=== PATIENT | female | born 1990 | race Two or more races ===

== ENCOUNTER → 2024-11-22 | Day surgery (SDC) | payer OTHER, SELFPAY ==
[2024-11-21 08:12] VITALS: BMI 23.2
--- NOTE | 2024-11-21 08:36 | ESHP_ITS ---
RE: CELIA DAVISON : 1990 DATE OF ADMISSION: 11/22/2024 HISTORY OF PRESENT ILLNESS: This is a 34-year-old 0 para 0 with LMP of 11/02/2024, who presents for removal of a submucous myoma. The patient has been experiencing abnormal uterine bleeding, which is a significant quality of life issue for her. She desires future fertility. ALLERGIES: NO KNOWN DRUG ALLERGIES. MEDICATIONS: None. SOCIAL HISTORY: She denies any alcohol, drug use or smoking. PAST MEDICAL HISTORY: Anxiety and depression. FAMILY HISTORY: Depression, anxiety, diabetes, and hypertension. PAST SURGICAL HISTORY: Denies. REVIEW OF SYSTEMS: She denies any chest pain, palpitations, cough, fever, shortness of breath or lower extremity pain. PHYSICAL EXAMINATION: VITAL SIGNS: Blood pressure 131/75, heart rate 68, respirations 18, temperature is 98.2, and weight 123 pounds. HEENT: Oropharynx and sclerae are clear. LUNGS: Clear to auscultation bilaterally. HEART: Regular rate and rhythm. ABDOMEN: Nontender. No scars noted. EXTREMITIES: Nontender. SKIN: No gross rashes or lesions. NEUROLOGIC: No focal deficits. ASSESSMENT AND PLAN: Abnormal uterine bleeding and submucous leiomyomata of the uterus. Plan is hysteroscopy, fractional dilatation and curettage, and MyoSure removal of submucous myoma. Informed consent was obtained. The patient was made aware of the risks, complications, alternatives, and benefits of the proposed procedure and she agrees. She is aware of the risk of injury to bowel, bladder, adjacent organs, pulmonary embolism, deep vein thrombosis, pelvic infection, reoperation to repair injury to internal organs, anesthesia complications, the possibility that a laparotomy needs to be performed to repair organs or controlled bleeding, and the possibility that the procedure is not able to be completed due to severe adhesions or technical difficulties. She verbalized understanding and agrees to proceed with the procedure with an understanding of the risks and complications. DT: 16:03:11 TT: 18:56:00 Ref: [id number] - TID: [id number] MTDD
[2024-11-21 08:46] LABS: Basophils % (Auto) 1 % (0-2.5); Eosinophils # (Auto) 0.1 Thou/mm3 (0.0-0.5); Eosinophils % (Auto) 1 % (0-10); Hematocrit 40.9 % (36.0-46.0); Hemoglobin 14.2 g/dL (12.0-16.0); Immature Granulocytes % (Auto) 0 % (0-0); Immature Granulocytes Auto 0.03 Thou/mm3 (0.00-0.00); Lymphocytes % (Auto) 29 % (10-50); Mean Corpuscular HGB Conc 34.7 g/dl (31.0-37.0); Mean Corpuscular Hemoglobin 30.7 pg (25.0-35.0); Mean Corpuscular Volume 89 fL (80-100); Monocytes # (Auto) 0.4 Thou/mm3 (0.0-0.8); Monocytes % (Auto) 6 % (0-12); Neutrophils # (Auto) 4.4 Thou/mm3 (1.8-7.7); Neutrophils % (Auto) 63 % (37-80); Nucleated Red Blood Cell % 0 /100 WBC (0); Platelet Count 284 Thou/mm3 (140-440); RDW Standard Deviation 43.5 fL (36.4-46.3); Red Blood Count 4.62 Miln/mm3 (4.00-5.20)
[2024-11-21 09:07] LABS: Alanine Aminotransferase 19 U/L (10-49); Albumin, Serum 4.5 gm/dL (3.5-5.0); Albumin/Globulin Ratio 1.7 (1.2-2.2); Alkaline Phosphatase 70 U/L (46-116); Anion Gap 6 (7-16); Aspartate Amino Transferase 23 U/L (0-34); BUN/Creatinine Ratio 16 Ratio (12-20); Beta HCG,Quantitative 1 mIU/mL (<5.0); Bilirubin,Total 0.9 mg/dL (0.3-1.2); Blood Urea Nitrogen 13 mg/dL (9-23); Calcium 9.5 mg/dL (8.3-10.6); Calcium (Corrected) 9.5 mg/dL (8.5-10.1); Carbon Dioxide 29.1 mMol/L (20.0-31.0); Chloride 103 mMol/L (98-107); Creatinine (Component) 0.8 mg/dL (0.6-1.3); Estimated Creatinine Clearance 75.5 mL/min (>60); Globulin 2.6 gm/dL (2.3-3.5); Glucose 88 mg/dL (74-106); Osmolality,Calculated 274 (275-295); Potassium 4.5 mMol/L (3.4-5.1); Sodium 138 mMol/L (136-145); Total Protein 7.1 gm/dL (5.7-8.2); eGFR > 60 See Note
[2024-11-21 09:20] LABS: Partial Thromboplastin Time 27.7 Seconds (22.0-36.0); Prothrombin Time 10.9 Seconds (9.0-12.2)
[2024-11-22 08:30] VITALS: BP 113/68; PULSE 55; RESP 20; TEMP 36.6; O2SAT 98; BMI 22.8
--- NOTE | 2024-11-22 09:00 | SUR.PREOP ---
Surgery cancelled due to equipment failure. Made aware by Dr. Hill. Aware to call Dr. Hill's office to reschedule procedure.
== END | disposition home or self-care (01) ==
LOC: S2EX 07:53
PROVIDERS: Referring Provider Specialist; Visit Provider Specialist
PROC: 0U5B8ZZ Destruction of Endometrium, Via Natural or Artificial Opening Endoscopic (ICD-10-PCS; CPT 58563; principal; 2024-11-22 09:45)
DX: D25.0 Submucous leiomyoma of uterus (principal); Z53.9 Procedure and treatment not carried out, unspecified reason
CPT/HCPCS: 58558; 36415; 80053; 84702; 85025; 85610; 85730; 86850; 86900; 86901; A4217; A4649

== ENCOUNTER 2025-01-05 05:30 | Day surgery (SDC) | payer OTHER, SELFPAY ==
[2025-01-04 15:09] VITALS: BMI 22.5
--- NOTE | 2025-01-04 16:15 | ESHP_ITS ---
RE: CELIA DAVISON : 1990 DATE OF ADMISSION: 01/05/2025 HISTORY OF PRESENT ILLNESS: This is a 34-year-old 1, para 0 with miscarriage at 6 weeks gestation who presents for suction dilatation and curettage. The patient denies any bleeding or cramping. She has had serial transvaginal ultrasounds confirming a 6-week intrauterine without cardiac activity. ALLERGIES: NO KNOWN DRUG ALLERGIES. MEDICATIONS: multivitamin 1 p.o. daily. PAST MEDICAL HISTORY: Submucous myoma of uterus; anxiety, and depression. SOCIAL HISTORY: She denies any alcohol, drug use, or smoking. FAMILY HISTORY: Depression, anxiety, diabetes, and hypertension. PAST SURGICAL HISTORY: Denies. REVIEW OF SYSTEMS: She denies any chest pain, palpitations, cough, fever, shortness of breath, or lower extremity pain. PHYSICAL EXAMINATION: VITAL SIGNS: Blood pressure is 122/74, heart rate 72, respirations 18, temperature 98.6. HEENT: Oropharynx and sclerae are clear. LUNGS: Clear to auscultation bilaterally. HEART: Regular rate and rhythm. ABDOMEN: Nontender. No scars noted. EXTREMITIES: Nontender. SKIN: No gross scars rashes, or lesions. NEUROLOGIC: No focal deficits. ASSESSMENT: Missed at 6 weeks gestation. PLAN: Suction dilation and curettage. Informed consent was obtained. The patient has been made aware of the risks, complications, alternatives, and benefits of the proposed procedure and she agrees. She is aware of the risk of injury to bowel, bladder, adjacent organs, pulmonary embolism, deep vein thrombosis, pelvic infection, reoperation to repair injury to internal organs, anesthesia complications, the possibility that a laparotomy needs to be performed to repair organs or control bleeding and the possibility the procedure is not able to be completed due to cervical canal obstruction or technical difficulties. The patient is aware that the bleeding can be more profuse than usual and higher risk of retained products of conception because of the submucous myoma. The patient verbalized understanding and agrees to proceed with the procedure. DT: 14:29:09 TT: 16:13:00 Ref: [id number] - TID: [id number]
[2025-01-04 16:48] LABS: Basophils % (Auto) 0 % (0-2.5); Eosinophils % (Auto) 0 % (0-10); Hematocrit 40.2 % (36.0-46.0); Hemoglobin 14.3 g/dL (12.0-16.0); Immature Granulocytes % (Auto) 1 % (0-0); Immature Granulocytes Auto 0.06 Thou/mm3 (0.00-0.00); Lymphocytes # (Auto) 2.2 Thou/mm3 (1.0-4.8); Lymphocytes % (Auto) 18 % (10-50); Mean Corpuscular HGB Conc 35.6 g/dl (31.0-37.0); Mean Corpuscular Hemoglobin 31.4 pg (25.0-35.0); Mean Corpuscular Volume 88 fL (80-100); Monocytes # (Auto) 0.7 Thou/mm3 (0.0-0.8); Monocytes % (Auto) 6 % (0-12); Neutrophils # (Auto) 9.2 Thou/mm3 (1.8-7.7); Neutrophils % (Auto) 75 % (37-80); Nucleated Red Blood Cell % 0 /100 WBC (0); Platelet Count 311 Thou/mm3 (140-440); RDW Standard Deviation 40.7 fL (36.4-46.3); Red Blood Count 4.56 Miln/mm3 (4.00-5.20); White Blood Count 12.2 Thou/mm3 (3.6-11.0)
[2025-01-04 17:05] LABS: INR 0.9 (0.9-1.3); Partial Thromboplastin Time 25.8 Seconds (22.0-36.0); Prothrombin Time 10.3 Seconds (9.0-12.2)
[2025-01-04 17:29] LABS: Alanine Aminotransferase 14 U/L (10-49); Albumin, Serum 4.5 gm/dL (3.5-5.0); Albumin/Globulin Ratio 1.7 (1.2-2.2); Alkaline Phosphatase 68 U/L (46-116); Anion Gap 11 (7-16); Aspartate Amino Transferase 18 U/L (0-34); BUN/Creatinine Ratio 13 Ratio (12-20); Bilirubin,Total 0.4 mg/dL (0.3-1.2); Blood Urea Nitrogen 10 mg/dL (9-23); Calcium 9.2 mg/dL (8.3-10.6); Calcium (Corrected) 9.2 mg/dL (8.5-10.1); Carbon Dioxide 25.5 mMol/L (20.0-31.0); Chloride 102 mMol/L (98-107); Creatinine (Component) 0.8 mg/dL (0.6-1.3); Estimated Creatinine Clearance 75.5 mL/min (>60); Globulin 2.7 gm/dL (2.3-3.5); Glucose 91 mg/dL (74-106); Osmolality,Calculated 274 (275-295); Potassium 3.8 mMol/L (3.4-5.1); Sodium 138 mMol/L (136-145); Total Protein 7.2 gm/dL (5.7-8.2); eGFR > 60 See Note
[2025-01-04 18:17] LABS: Beta HCG,Quantitative 115583 mIU/mL (<5.0)
[2025-01-05] VITALS (7 sets, daily range): BP systolic 93–102; BP diastolic 51–62; PULSE 52–89; RESP 13–20; TEMP 36.2–37.2; O2SAT 98–100; BMI 23.0
[2025-01-05] MEDS: RINGERS LACTATED 1000 ML 1,000 ML 30 ML IV (06:39)
--- NOTE | 2025-01-05 08:19 | SUR.PHASEI ---
pt received from OR in recovery bay 5. pt asleep but responds to voice, breathing unlabored on nc 4l. v/s stable. pt dressing peripad cdi. report received from Jeovany LEZAMA and Kayla SIMON.
--- NOTE | 2025-01-05 08:22 | ESOP_ITS ---
RE: CELIA DAVISON : 1990 DATE OF OPERATION: 01/05/2025 PREOPERATIVE DIAGNOSIS: Missed , 6 weeks gestation. POSTOPERATIVE DIAGNOSIS: Missed , 6 weeks gestation. PROCEDURE PERFORMED: Suction dilatation and curettage. SURGEON: Gumaro Hill DO MAINTENANCE SHOP MANAGER: None. ANESTHESIA: General. ANESTHESIOLOGIST: Elizabeth Gresham CRNA ESTIMATED BLOOD LOSS: 50 mL COMPLICATIONS: None. COUNTS: Correct. PATHOLOGY: Products of conception. FINDINGS: A 6-week size anteverted uterus with the cervix that was long and closed, moderate amount of products of conception in the uterine cavity, posterior fundal myoma, submucous myoma. DESCRIPTION OF PROCEDURE: After appropriate informed consent was obtained, the patient was made aware of the risks, complications, alternatives, and benefits of the proposed procedure, she was taken to the operating room where she underwent induction of general anesthesia. She was placed in the dorsal lithotomy position and prepped and draped in the usual sterile fashion. Timeout was performed and the patient underwent exam under anesthesia, which revealed the above findings. A bivalve speculum was placed in the vagina. A single-tooth tenaculum was used to grasp the anterior lip of the cervix. The cervix was dilated to accommodate the 8 mm suction curette. The uterine cavity was curetted in all four quadrants and the products of conception were sent to pathology. The smooth contour of the uterus was lost on the posterior fundal aspect of the uterus during curetting indicating a submucous myoma. There was no bleeding at the end of the procedure. She received Pitocin. She was reversed from general anesthesia in the supine position and transferred to the recovery room in stable condition. Her blood type is O positive. Discharge instructions were given preoperatively. DT: 08:07:10 TT: 08:20:00 Ref: [id number] - TID: [id number]
--- NOTE | 2025-01-05 08:34 | SUR.PHASEI ---
pt able tolerate oral fluids without difficulty swallowing or nausea/vomiting.
--- NOTE | 2025-01-05 09:24 | SUR.PHASEII ---
pt awake and alert, breathing unlabored on room air. v/s stable. pt dressing peripad scant blood noted. pt able to ambulate to wheelchair with steady gait. d/c instructions given with mother Melodie in room using inspector fuel hose [employer] all questions answered. pt d/c via wheelchair with all belongings.
== END 2025-01-05 09:24 | disposition home or self-care (01) ==
PROVIDERS: PCP Family Medicine; Referring Provider Specialist; Visit Provider Specialist
PROC: (CPT 58120; principal; 2025-01-05 07:30)
DX: O02.1 Missed abortion (principal); Z3A.01 Less than 8 weeks gestation of pregnancy
CPT/HCPCS: 59820; 36415; 80053; 84702; 85025; 85610; 85730; 86850; 86900; 86901; A4217; J0131; J2210; J2250; J2371; J2405; J2704; J2765; J3010; J3490; J7120; J1596

== ENCOUNTER 2025-01-23 08:07 | Emergency (ER) | payer OTHER, SELFPAY ==
[2025-01-23 08:08] VITALS: BMI 22.6
[2025-01-23 08:14] VITALS: BP 103/69; PULSE 55; RESP 18; TEMP 36.7; O2SAT 96
--- NOTE | 2025-01-23 08:16 | PD.EDWOUND ---
ED Wound/Laceration-RME/HPI General Chief Complaint: Wound/Laceration Stated Complaint: RT KNEE LAC Time Seen by Provider: 01/23/25 08:10 Source: patient Arrival date/time: 01/23/25 08:07 34-year-old female with no known medical history presents to the emergency room with a chief complaint of a laceration to her right knee after a ground-level fall that occurred today while running. Mode of arrival: ambulatory Limitations: no limitations Related Data Home Medications ?Medication ?Instructions ?Recorded ?Confirmed vit no.95-ferrous 1 tab PO DAILY 11/21/24 01/04/25 fumarate 28 mg-folic acid 800 mcg tablet () Allergies Allergy/AdvReac Type Severity Reaction Status Date / Time No Known Allergies Allergy Verified 01/05/25 06:40 Review of Systems Review of Systems Systems Reviewed: All systems reviewed, normal except as documented Constitutional Constitutional: Reports system reviewed and no additional complaints, except as documented, Denies fatigue, Denies fever(s), Denies headache(s) and Denies weakness Eyes Eyes: Reports system reviewed and no additional complaints, except as documented, Denies blurry vision and Denies change in vision ENT Ears, Nose, Mouth, and Throat: Reports system reviewed and no additional complaints, except as documented, Denies otalgia, Denies headache(s), Denies nasal congestion, Denies throat swelling and Denies vertigo Cardiovascular Cardiovascular: Reports system reviewed and no additional complaints, except as documented, Denies chest pain, Denies dyspnea and Denies dyspnea on exertion Respiratory Respiratory: Reports system reviewed and no additional complaints, except as documented, Denies chest congestion, Denies cough, Denies dyspnea, Denies dyspnea on exertion and Denies wheezing Gastrointestinal Gastrointestinal: Reports system reviewed and no additional complaints, except as documented, Denies abdominal pain, Denies cramping, Denies nausea and Denies vomiting Genitourinary Genitourinary: Reports system reviewed and no additional complaints, except as documented Musculoskeletal Musculoskeletal: Reports system reviewed and no additional complaints, except as documented and Denies back pain Integumentary/Breasts Skin/Breast: Reports system reviewed and no additional complaints, except as documented and Reports wounds Neurologic Neurologic: Reports system reviewed and no additional complaints, except as documented, Denies confusion, Denies headache(s), Denies lack of coordination, Denies vertigo and Denies weakness Psychiatric Psychiatric: Reports system reviewed and no additional complaints, except as documented, Denies anxiety, Denies confusion, Denies depression, Denies paranoia, Denies suicidal ideation and Denies tactile hallucinations Endocrine Endocrine: Reports system reviewed and no additional complaints, except as documented and Denies fatigue Hematologic/Lymphatic Hematologic/Lymphatic: Reports system reviewed and no additional complaints, except as documented and Denies lymphadenopathy Allergic/Immunologic Allergic/Immunologic: Reports system reviewed and no additional complaints, except as documented, Denies throat swelling, Denies urticaria and Denies wheezing ED Exam General Limitations: Present no limitations General appearance: Present alert and in no apparent distress Head Head exam: Present atraumatic Eye Eye exam: Present normal appearance, PERRL and EOMI ENT ENT exam: Present normal exam, normal oropharynx and mucous membranes moist Neck Neck exam: Present normal inspection, full ROM and trachea midline Chest Chest inspection: Present normal inspection and symmetric chest wall rise Respiratory Respiratory exam: Present normal lung sounds bilaterally Cardiovascular Cardiovascular exam: Present regular rate, normal rhythm and normal heart sounds Abdominal Exam Abdominal exam: Present soft and normal bowel sounds Extremities Exam Extremities exam: Present normal inspection and full ROM Expanded Lower Extremity Exam Hip/Pelvis exam: Present normal inspection Upper leg exam: Present normal inspection Leg image:  1. 2 cm laceration to the right knee Knee exam: Present tenderness and laceration Lower leg exam: Present normal inspection Ankle exam: Present normal inspection Foot/toe exam: Present normal inspection Gait: observed and normal Back Exam Back exam: Present normal inspection and full ROM Neurological Exam Neurological exam: Present alert, oriented X3 and CN II-XII intact Psychiatric Psychiatric exam: Present normal affect and normal mood Skin Skin exam: Present warm, dry, intact and normal color Course Quality Measures none Orders Category Date Time Status Set Up Suture Tray STAT Care 01/23/25 08:16 Completed Wound Care NOW Care 01/23/25 08:16 Completed Lidocaine 1% 20 ml [Xylocaine 1% 20 ML] Med 01/23/25 08:16 Discontinued 20 ml INFL X1 ONE TET,DIP/PERT AC (Adult)-Tdap [Boostrix Adult (Tdap) Med 01/23/25 08:16 Discontinued Vacc] 0.5 ml IMI .ONCE ONE Vital Signs Vital signs: Vital Signs Temperature 98.1 F 01/23/25 08:14 Pulse Rate 55 L 01/23/25 08:14 Respiratory Rate 18 01/23/25 08:14 Blood Pressure 103/69 01/23/25 08:14 Pulse Oximetry (%) 96 01/23/25 08:14 Oxygen Delivery Method Room Air 01/23/25 08:14 O2 saturation 96% within normal limits Procedures -ED Laceration Laceration 1: Site: lower extremity Side (If applicable): right Size (cm): 2 Description: linear Depth: simple, single layer Local Anesthetic: lidocaine 1% Amount of anesthesia used (mL): 3 Pre-repair: irrigated extensively Skin layer closed with: nylon Suture size (cm): 4-0 Number of sutures: 3 Technique: simple, interrupted Wound / Laceration MDM Narrative MDM Narrative:: 34-year-old female with no known medical history presents to the emergency room with a chief complaint of a laceration to her right knee after a ground-level fall that occurred today while running Patient is hemodynamically stable and in no apparent distress Physical examination shows a 2 cm laceration to the patient's right knee. The laceration occured 30 minutes ago The mechanism of injury was a ground-level fall while running. The patient landed on gravel Sensation is intact. There is full ROM. There is no exposed tendons. No foreign bodies. Lidocaine 1% was used for anesthesia. The wound was irrigated extensively with normal saline. 3 sutures were placed. A dressing was placed. There were no complications. Patient was educated to keep the area clean and dry for 24 hours, then clean daily with soap and water. Patient was educated to return for any signs of infection including swelling pain redness pus or fever and to make an appointment with primary care provider in 48 hours. Patient was educated to follow up with primary or return to emergency room for suture removal in the next 7-10 days. Patient data External records reviewed:: [facility] previous records Clinical information provided by:: patient Social determinants that could affect healthcare access:: none Patient has the following chronic illnesses:: No chronic illness How is presenting disease/condition affected by chronic disease/condition?: no chronic disease Evaluation data The following diagnostics were reviewed and interpreted by me:: lab results and radiology exam(s) Lab and/or radiology exams considered but not ordered:: Labs and radiology exams considered and ordered Interpretation Summary: N/A Medications / Prescriptions Medications or Prescriptions considered but not ordered:: Medication given Medication administrations:: Medication Administration History Discontinued Medications Diphtheria/Tetanus/Acell Pertussis (Diphth,Pertuss(Acell),Tet Vac 0.5 Ml Syr- Adult) 0.5 ml IMi .ONCE ONE Stop: 01/23/25 08:17 Last Admin: 01/23/25 08:29 Dose: 0.5 ml Documented By: [facility] Lidocaine HCl (Lidocaine Hcl 1% 20 Ml Vial) 20 ml INFL X1 ONE Stop: 01/23/25 08:17 Last Admin: 01/23/25 08:29 Dose: 20 ml Documented By: [facility] Comments: used by provider Medication given Consultations Consultation(s) initiated? (list below): No Diagnosis Wound Differential Diagnosis: laceration, abscess, abrasion and avulsion of skin Most likely diagnosis given after review of the tests above:: Laceration Admission Indicated Admission indicated?: not indicated Admission Request Was there a request for admission?: No Disposition Plan Disposition Plan: Discharge Discharge Attestation Discharge Attestation: The patient and all family members were given an opportunity to ask questions and understood the discharge instructions. Discharge instructions specifically effects, indications for sooner follow up or return to the emergency department, and the expected course of current diagnosis. Patient condition: Stable Discharge Plan Plan Patient Disposition: HOME (Self Care) Discharge Disposition comment: Stable Prescriptions/Referrals Prescriptions/Med Rec: No Action PNV cmb#95-ferrous fumarate-FA [] 28 mg iron- 800 mcg tablet 1 tab PO DAILY Patient Comments: TAKE 1 TABLET BY MOUTH EVERY DAY Problem List Clinical Impression: Laceration Patient/Caregiver Discharge Instructions Additional Instructions: Please follow-up with your primary care provider in the next 24 to 48 hours You can return to the emergency room in 7 to 10 days for suture removal Please keep the area clean and dry for the next 24 hours and afterwards you can clean it with soap and water For any evidence of worsening signs or symptoms return to the emergency room immediately Print Language: Upper Sorbian Stand Alone Forms: [employer]., Work/School Release, Patient Portal Info Letter
[2025-01-23] MEDS: DIPHTH,PERTUSS(ACELL),TET VAC 0.5 ML SYR- ADULT IMi (08:29)
[2025-01-23] MEDS: LIDOCAINE HCL 1% 20 ML VIAL INFL (08:29)
== END 2025-01-23 08:46 | disposition home or self-care (01) ==
LOC: SERX 08:41
PROVIDERS: Emergency Provider Family Medicine; PCP Family Medicine
DX: S81.011A Laceration without foreign body, right knee, initial encounter (principal); W18.30XA Fall on same level, unspecified, initial encounter; Z23 Encounter for immunization
CPT/HCPCS: 12002; 90471; 90715; 99283; J3490

== ENCOUNTER → 2025-01-25 | Outpatient (CLI) | payer BC, SELFPAY ==
--- NOTE | 2025-01-25 09:06 | XR_ITS ---
Examination: Knee, right , 3 views Technique: Knee AP, lateral, oblique 3 views Date and time of exam: January 0924 hours INDICATIONS: Injury to the knee 2 days ago with knee pain. Findings: Mild narrowing medial joint space No fracture or dislocation IMPRESSION: No fracture or dislocation
== END | disposition home or self-care (01) ==
PROVIDERS: PCP Family Medicine; Referring Provider Family Medicine; Visit Provider Family Medicine
DX: M25.561 Pain in right knee (principal)
CPT/HCPCS: 73562

== ENCOUNTER 2025-02-21 06:11 | Day surgery (SDC) | payer OTHER, SELFPAY ==
[2025-02-20 07:08] VITALS: BMI 23.1
[2025-02-20 07:55] LABS: Basophils # (Auto) 0.0 Thou/mm3 (0.0-0.2); Basophils % (Auto) 1 % (0-2.5); Eosinophils # (Auto) 0.1 Thou/mm3 (0.0-0.5); Eosinophils % (Auto) 2 % (0-10); Hematocrit 40.7 % (36.0-46.0); Hemoglobin 14.1 g/dL (12.0-16.0); Immature Granulocytes Auto 0.03 Thou/mm3 (0.00-0.00); Lymphocytes # (Auto) 2.1 Thou/mm3 (1.0-4.8); Lymphocytes % (Auto) 38 % (10-50); Mean Corpuscular HGB Conc 34.6 g/dl (31.0-37.0); Mean Corpuscular Hemoglobin 31.5 pg (25.0-35.0); Mean Corpuscular Volume 91 fL (80-100); Monocytes # (Auto) 0.4 Thou/mm3 (0.0-0.8); Monocytes % (Auto) 7 % (0-12); Neutrophils # (Auto) 3.0 Thou/mm3 (1.8-7.7); Neutrophils % (Auto) 52 % (37-80); Nucleated Red Blood Cell # 0.00 Thou/mm3 (0.00-0.00); Nucleated Red Blood Cell % 0 /100 WBC (0); Platelet Count 295 Thou/mm3 (140-440); RDW Standard Deviation 42.6 fL (36.4-46.3); Red Blood Count 4.48 Miln/mm3 (4.00-5.20); White Blood Count 5.7 Thou/mm3 (3.6-11.0)
[2025-02-20 08:05] LABS: INR 0.9 (0.9-1.3); Partial Thromboplastin Time 27.4 Seconds (22.0-36.0); Prothrombin Time 10.4 Seconds (9.0-12.2)
[2025-02-20 08:13] LABS: Alanine Aminotransferase 29 U/L (10-49); Albumin, Serum 4.6 gm/dL (3.5-5.0); Albumin/Globulin Ratio 1.9 (1.2-2.2); Alkaline Phosphatase 76 U/L (46-116); Anion Gap 6 (7-16); Aspartate Amino Transferase 28 U/L (0-34); BUN/Creatinine Ratio 21 Ratio (12-20); Beta HCG,Quantitative 3 mIU/mL (<5.0); Bilirubin,Total 0.6 mg/dL (0.3-1.2); Blood Urea Nitrogen 17 mg/dL (9-23); Calcium 9.9 mg/dL (8.3-10.6); Calcium (Corrected) 9.9 mg/dL (8.5-10.1); Carbon Dioxide 28.5 mMol/L (20.0-31.0); Chloride 107 mMol/L (98-107); Creatinine (Component) 0.8 mg/dL (0.6-1.3); Estimated Creatinine Clearance 75.5 mL/min (>60); Globulin 2.4 gm/dL (2.3-3.5); Glucose 100 mg/dL (74-106); Osmolality,Calculated 282 (275-295); Potassium 4.5 mMol/L (3.4-5.1); Sodium 141 mMol/L (136-145); Total Protein 7.0 gm/dL (5.7-8.2); eGFR > 60 See Note
--- NOTE | 2025-02-20 15:43 | ESHP_ITS ---
RE: CELIA DAVISON : 1990 DATE OF ADMISSION: 02/21/2025 HISTORY OF PRESENT ILLNESS: This is a 34-year-old 1, para 0-0-1-0 with abnormal uterine bleeding and submucous myoma who presents for surgical removal. ALLERGIES: No known drug allergies. MEDICATIONS: None. PAST MEDICAL HISTORY: Anxiety, depression. SOCIAL HISTORY: She denies any alcohol, drug use, or smoking. FAMILY HISTORY: Depression, anxiety, diabetes, hypertension. PAST SURGICAL HISTORY: 01/04/2025, suction dilatation and curettage for missed at 6 weeks' gestation. REVIEW OF SYSTEMS: She denies any chest pain, palpitations, cough, fever or shortness of breath or lower extremity pain. PHYSICAL EXAMINATION: Vital Signs: Blood pressure is 120/70, heart rate 70, respirations 20, temperature 98.7. HEENT: Oropharynx and sclerae are clear. Lungs: Clear to auscultation bilaterally. Heart: Regular rate and rhythm. Abdomen: Nontender. No scars noted. Extremities: Nontender. Skin: No gross rashes or lesions. Neurologic: No focal deficit. ASSESSMENT: Abnormal uterine bleeding, submucous uterine myoma. PLAN: Hysteroscopy, Myosure removal of submucous myoma and fractional dilatation and curettage. Informed consent was obtained. The patient was made aware of the risks, complications, alternatives, and benefits of the proposed procedure and she agrees. She is aware of the risk of injury to uterus, bowel, or bladder, bleeding leading to blood transfusion, blood clots in the deep veins of the legs and lungs, anesthesia complications. DT: 18:41:38 TT: 19:38:00 Ref: [id number] - TID: [id number] MTDD
[2025-02-21 06:16] VITALS: BP 103/64; PULSE 52; RESP 19; TEMP 37.1; O2SAT 97; BMI 23.9
--- NOTE | 2025-02-21 07:20 | CHAP ---
Visited briefly with patient and gave her some words of encouagement and prayer.
[2025-02-21 08:16] VITALS: BP 100/67; PULSE 62; RESP 12; TEMP 36.7; O2SAT 97
--- NOTE | 2025-02-21 08:16 | SUR.PHASEI ---
pt received from OR in recovery bay 1. pt asleep but responds to voice, breathing unlabored on 6l oxymask. v/s stable. pt dressing peripad scant blood noted. report received from Josh SIMON and Gabriel PARKER.
--- NOTE | 2025-02-21 08:19 | PD.GYNPROC ---
Operative Note - EXTRACTIONS TECHNOLOGIST Procedure Date of procedure: 02/21/25 Procedure Performed: Hysteroscopy, MyoSure removal of submucous myoma, fractional dilation and curettage Indication: Abnormal uterine bleeding Submucous myoma uterus Pre-Op diagnosis: Abnormal uterine bleeding Submucous myoma uterus Post-Op diagnosis: Abnormal uterine bleeding Submucous myoma uterus Anesthesia type: General Procedure description: After proper informed consent was obtained and the patient made aware of the risk complications alternatives and benefits of the proposed procedure she was taken to the operating room where she underwent induction of general anesthesia. She was placed in the dorsal lithotomy position. She was prepped and draped in the usual sterile fashion. A speculum was placed in the vagina. A single-tooth tenaculum was used to grasp the anterior lip of the cervix. The cervix was dilated to accommodate the 5.5 mm Omni hysteroscope. The hysteroscope was then utilized to visualize the endocervix and uterine cavity. The submucous myoma broad-based 5 mm on the posterior mid uterine segment was removed with the MyoSure device. Hemostasis was achieved. The endocervix was curetted with a Kevorkian curette. The uterine cavity was curetted and specimen sent to pathology for both curettings. There was no bleeding at the end of the procedure. All instruments were removed from the vagina. She was reversed from general anesthesia in supine position and transferred to the recovery room in stable condition. I discussed with the patient's family the nature of her condition, the intraoperative findings, and the expectation for recovery. All questions answered. Estimated blood loss (ml): 5 Findings: 5 mm broad-based submucous myoma posterior mid uterine segment. Normal endocervical canal Both tubal ostia visualized Normal uterine cavity shape. Complications: none Surgical staff Manoj Connolly CRNA Operation Date: 02/21/25 07:30 <No data on this case meets the specified criteria> Diagnosis Problem List Completed Was Problem List Reviewed/Reconciled?: Yes
[2025-02-21 08:20] VITALS: BP 103/68; PULSE 67; RESP 15; TEMP 36.7; O2SAT 97
[2025-02-21 08:25] VITALS: BP 100/67; PULSE 54; RESP 12; TEMP 36.6; O2SAT 100
--- NOTE | 2025-02-21 08:29 | SUR.PHASEI ---
pt able to tolerate oral fluids without difficulty swallowing or nausea/vomiting.
[2025-02-21 08:30] VITALS: BP 103/71; PULSE 63; RESP 18; TEMP 36.6; O2SAT 100
[2025-02-21 08:45] VITALS: BP 103/71; PULSE 52; RESP 17; TEMP 36.6; O2SAT 100
--- NOTE | 2025-02-21 09:10 | SUR.PHASEII ---
pt awake and alert, breathing unlabored on room air. v/s stable. pt dressing peripad scant blood noted. pt able to ambulate to wheelchair with steady gait. d/c instructions given with mother Carmelina in room using stamp redemption clerk [employer] [id number], all questions answered. pt d/c via wheelchair with all belongings.
== END 2025-02-21 09:10 | disposition home or self-care (01) ==
PROVIDERS: PCP Specialist; Referring Provider Specialist; Visit Provider Specialist
PROC: 0U5B8ZZ Destruction of Endometrium, Via Natural or Artificial Opening Endoscopic (ICD-10-PCS; CPT 58563; principal; 2025-02-21 07:30)
DX: D25.0 Submucous leiomyoma of uterus (principal)
CPT/HCPCS: 58558; 36415; 80053; 84702; 85025; 85610; 85730; 86850; 86900; 86901; A4217; A4649; J0131; J0690; J1100; J1885; J2250; J2405; J2704; J2765; J3010